=== PATIENT | male | born 1990 | race Caucasian/White ===

== ENCOUNTER 2021-11-07 16:53 | Inpatient (IN) | payer MEDICAID, SELFPAY ==
[2021-11-07 17:13] VITALS: BP 135/79; BP 142/100; PULSE 79; PULSE 82; RESP 17; TEMP 37.6; O2SAT 100; BMI 26.6
[2021-11-07] MEDS: Diphth,Pertus(ACell),Tet Adult 0.5 ML SYRINGE IM (17:36)
[2021-11-07] MEDS: Lidocaine HCl 2 % MPF 5 ML VIAL INFILTRATI ×2 (17:37)
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
[2021-11-07 18:15] VITALS: BP 138/90; PULSE 71; RESP 16; TEMP 36.9; O2SAT 100
[2021-11-07 18:46] LABS: Appearance Urine CLEAR; Color Urine YELLOW; Glucose Urine UA NEG (NEG); Leukocyte Esterase Urine NEG (NEG); Nitrite Urine NEG (NEG); Specific Gravity - Urine <= 1.005 (1.005-1.025); Urine Blood NEG (NEG); Urine Ketones NEG (NEG); Urine Protein NEG (NEG-TRACE)
[2021-11-07 19:03] LABS: Amphetamine Screen Urine Not Detected (Not Detect); Barbiturates, Urine Not Detected (Not Detect); Benzodiazepines Screen Urine Not Detected (Not Detect); Cannabinoid Screen Urine POSITIVE (Not Detect); Cocaine Screen Urine Not Detected (Not Detect); Fentanyl, urine Not Detected (Not Detect); Opiate Screen Urine Not Detected (Not Detect); Phencyclidine Screen Urine Not Detected (Not Detect)
[2021-11-07 19:18] LABS: MANUAL DIFF FLAG NO
[2021-11-07 19:19] LABS: Basophils Percent Auto 0.3 % (0-2); Eosinophils Absolute Auto 0.1 X10*3/uL (0.0-0.4); Eosinophils Percent Auto 0.7 % (0-4); Hematocrit 43.9 % (42.0-52.0); Hemoglobin 15.7 g/dl (14.0-18.0); Imm Gran Abs Auto 0.03 X10*3/uL (0.00-0.03); Imm Gran Pct Auto 0.3 % (0.0-0.4); Lymphocytes Absolute Auto 2.4 X10*3/uL (1.2-4.9); Lymphocytes Percent Auto 27.7 % (20-40); Mean Corpuscular HGB Conc 35.8 g/dl (31.0-36.0); Mean Corpuscular Hemoglobin 31.3 pg (27.0-33.0); Mean Corpuscular Volume 87.6 fL (80.0-98.0); Mean Platelet Volume 10.6 fL (9.4-12.4); Monocytes Absolute Auto 0.6 X10*3/uL (0.1-1.2); Monocytes Percent Auto 6.4 % (2-11); Neutrophils Absolute Auto 5.5 x10*3/uL (2.0-8.3); Neutrophils Percent Auto 64.6 % (45-73); Platelet Count 215 X10*3/uL (160-400); Red Blood Count 5.01 X10*6/uL (4.60-5.80); Red Cell Distribution Width 12.9 % (11.0-16.0); White Blood Count 8.6 X10*3/uL (4.8-10.8)
[2021-11-07 19:36] LABS: Alanine Aminotransferase 16 U/L (0-40); Albumin Level 4.4 g/dL (3.5-5.0); Alkaline Phosphatase 55 U/L (39-117); Anion Gap 11 (12-20); Aspartate Amino Transferase 20 U/L (5-37); Bilirubin Total 0.7 mg/dL (0.0-1.0); Blood Urea Nitrogen 7 mg/dL (9-16); Calcium 9.4 mg/dL (8.4-10.2); Carbon Dioxide 31 mmol/L (22-29); Chloride 103 mmol/L (96-108); Creatinine Clr Calc Pharmacy 102.6; Estimated Glomerular Filt Rate > 60; Glucose Random 95 mg/dL (60-115); Potassium 4.4 mmol/L (3.3-5.1); Sodium 141 mmol/L (135-145); Total Protein 7.4 g/dL (6.5-8.0)
[2021-11-07 19:38] LABS: Ethanol < 10 mg/dL
[2021-11-07 22:56] LABS: COVID-19 Test Negative (Negative); IDNOW Serial# 16C4AD1C
[2021-11-07 23:45] VITALS: BP 142/98; PULSE 60; RESP 16; TEMP 36.6; O2SAT 100
[2021-11-08] MEDS: Acetaminophen 325 MG TABLET 650 MG PO (00:26)
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
[2021-11-08 09:44] LABS: Magnesium 1.9 mg/dL (1.6-2.6)
[2021-11-08 10:07] LABS: Free T4 (Free Thyroxine) 1.06 ng/dL (0.71-1.85)
[2021-11-08 10:25] LABS: Folate 10.1 ng/mL (> or = 4.0); Vitamin B12 502 pg/mL (200-900)
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
[2021-11-08 18:00] VITALS: BP 133/87; PULSE 97; RESP 16; TEMP 37.1; O2SAT 96
[2021-11-08] MEDS: traZODone HCL 50 MG TABLET PO (20:26)
[2021-11-08] MEDS: Doxazosin Mesylate 1 MG TABLET PO (20:27)
[2021-11-09] MEDS: FLUoxetine HCl 20 MG CAPSULE PO (08:54)
[2021-11-09 09:03] VITALS: BP 125/77; PULSE 83; RESP 18; TEMP 36.9; O2SAT 99
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
[2021-11-09] MEDS: Acetaminophen 325 MG TABLET 650 MG PO (13:48)
[2021-11-09 20:31] VITALS: BP 134/76; PULSE 78; RESP 16; TEMP 37.4; O2SAT 98
[2021-11-09] MEDS: Doxazosin Mesylate 1 MG TABLET PO (20:40)
[2021-11-09] MEDS: traZODone HCL 50 MG TABLET PO (23:11)
[2021-11-10] MEDS: FLUoxetine HCl 20 MG CAPSULE PO (08:58)
[2021-11-10] MEDS: Acetaminophen 325 MG TABLET 650 MG PO (08:58)
[2021-11-10 09:14] VITALS: BP 143/81; PULSE 118; RESP 20; TEMP 36.5; O2SAT 98
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
[2021-11-10] MEDS: traZODone HCL 50 MG TABLET PO (22:51)
[2021-11-10] MEDS: Doxazosin Mesylate 1 MG TABLET PO (22:51)
[2021-11-10 22:52] VITALS: BP 132/84; PULSE 105; RESP 18; TEMP 36.4; O2SAT 98
[2021-11-11] MEDS: FLUoxetine HCl 20 MG CAPSULE PO (10:25)
[2021-11-11] MEDS: Acetaminophen 325 MG TABLET 650 MG PO (10:25)
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
== END 2021-11-11 14:50 | disposition home or self-care (01) | DRG 755 ==
LOC: HO.ED 18:14 → HO.PADLT16 23:18
PROVIDERS: Physician Assistant; Registered Nurse; Admitting Provider Psychiatry & Neurology Psychiatry; Emergency Provider Emergency Medicine Emergency Medical Services; Visit Provider Psychiatry & Neurology Psychiatry
DX: F43.20 Adjustment disorder, unspecified (principal); Z20.822 Contact with and (suspected) exposure to COVID-19; Z91.52 Personal history of nonsuicidal self-harm; Z79.899 Other long term (current) drug therapy
CPT/HCPCS: 36415; 80053; 80307; 81003; 82077; 82607; 82746; 83735; 84439; 84443; 85025; 87635; 90471; 90715; 99285